=== PATIENT | male | born 1990 | race Caucasian/White ===

== ENCOUNTER 2016-10-28 21:30 | Emergency (ER) | payer SELFPAY ==
[~2016-10-28] VITALS: Ht 177.8 cm; Wt 125.0 kg
[~2016-10-28 21:30] MED LIST: NAPROSYN500 MG PO; NORCO 325 MG-51 TAB PO; NORCO 325 MG-7.1 TAB PO
[2016-10-28 21:34] VITALS: BP 161/84; PULSE 96; TEMP 98.8
[2016-10-29] MEDS ORDERED: AMOXICILLIN 8751 TAB PO (00:12)
== END 2016-10-29 00:30 | disposition home or self-care (01) ==
LOC: COL.ER 21:30
DX: S61.451A Open bite of right hand, initial encounter (principal); S51.852A Open bite of left forearm, initial encounter; S80.212A Abrasion, left knee, initial encounter; S80.211A Abrasion, right knee, initial encounter; W54.0XXA Bitten by dog, initial encounter; Y92.009 Unspecified place in unspecified non-institutional (private) residence as the place of occurrence of the external cause
CPT/HCPCS: J2270